=== PATIENT | male | born 1950 | race Caucasian/White ===

== ENCOUNTER 2020-07-01 13:30 | Outpatient (CLI) | payer MEDICARE, OTHER | END 2020-07-01 23:59 | disposition home or self-care (01) | LOC: COV 13:30 | PROVIDERS: ATTEND Family Medicine | DX: R50.9 Fever, unspecified (principal); M79.10 Myalgia, unspecified site; R09.81 Nasal congestion; R11.2 Nausea with vomiting, unspecified; Z20.828 Contact with and (suspected) exposure to other viral communicable diseases ==